=== PATIENT | male | born 1960 | race Caucasian/White ===

== ENCOUNTER 2017-02-24 23:54 | Emergency (ER) | payer MEDICAID ==
[~2017-02-24] VITALS: Ht 190.5 cm; Wt 114.0 kg
[~2017-02-24 23:54] MED LIST: GABA100C8 PO; HYDR12.58 PO; LISI30TA4 PO; LISINOPRIL PO; METF500T4 PO; NAPR500T3 PO; TAMS-11 PO; TERA1CAP3 PO
[2017-02-24 23:56] VITALS: BP 124/85
== END 2017-02-25 00:53 | disposition home or self-care (01) ==
LOC: ED 02-25 00:47
DX: L27.0 Generalized skin eruption due to drugs and medicaments taken internally (principal); T37.5X5A Adverse effect of antiviral drugs, initial encounter; I10 Essential (primary) hypertension; E11.9 Type 2 diabetes mellitus without complications; F17.210 Nicotine dependence, cigarettes, uncomplicated; Y92.89 Other specified places as the place of occurrence of the external cause
CPT/HCPCS: 99283; J7512

== ENCOUNTER 2017-05-14 01:17 | Emergency (ER) | payer MEDICAID ==
[~2017-05-14] VITALS: Ht 193 cm; Wt 116.8 kg
[~2017-05-14 01:17] MED LIST changes: +GABA-826 PO; -GABA100C8 PO
[2017-05-14 01:18] VITALS: BP 134/82
[2017-05-14] MEDS ORDERED: FLUORESCEIN OPHTHALMIC 1 MG STRIP ONE (01:30)
[2017-05-14] MEDS ORDERED: PROPARACAINE OPHTH 0.5%, 15ML ONE (01:30)
== END 2017-05-14 02:12 | disposition home or self-care (01) ==
LOC: ED 01:42
DX: H10.231 Serous conjunctivitis, except viral, right eye (principal); I10 Essential (primary) hypertension; E11.9 Type 2 diabetes mellitus without complications; N40.0 Benign prostatic hyperplasia without lower urinary tract symptoms; K75.9 Inflammatory liver disease, unspecified; F17.200 Nicotine dependence, unspecified, uncomplicated; Z88.1 Allergy status to other antibiotic agents
CPT/HCPCS: 99283

== ENCOUNTER 2017-09-21 15:48 | Inpatient (IN) | payer MEDICAID, OTHER ==
[~2017-09-21] VITALS: Ht 193 cm; Wt 128.2 kg
[~2017-09-21 15:48] MED LIST changes: -NAPR500T3 PO; +NAPR500T4 PO
[2017-09-21 16:48] LABS: HEMATOCRIT 48.3 % (39.2-51.8); HEMOGLOBIN 16.4 g/dL (13.7-18.0); WHITE BLOOD COUNT 12.4 x10^3/uL (3.4-10)
[2017-09-21] MEDS ORDERED: ALBUTEROL/IPRATROPIUM 2.5MG/0.5MG, 3 ML ONE (16:58)
[2017-09-21 16:59] LABS: BLOOD UREA NITROGEN 10 mg/dL (7-18)
[2017-09-21] MEDS ORDERED: SODIUM CHLORIDE FLUSH 10ML SYR IVF ONE (17:00)
[2017-09-21] MEDS ORDERED: ALBUTEROL/IPRATROPIUM 2.5MG/0.5MG, 3 ML NPPB ONE (17:00)
[2017-09-21] MEDS ORDERED: ALBU18HF INH (17:01)
[2017-09-21 17:05] LABS: ABG COLLECTION SITE LEFT BRACHIAL
[2017-09-21 17:19] LABS: RAPID INFLUENZA A Negative (Negative); RAPID INFLUENZA B Negative (Negative)
[2017-09-21] MEDS ORDERED: ALBUTEROL SULFATE 2.5 MG/3 ML ONE (17:22)
[2017-09-21] MEDS ORDERED: CEFTRIAXONE PMX 1GM/50ML 50 ML IVPB ONE (17:30)
[2017-09-21] MEDS ORDERED: ALBUTEROL 0.5%, 20ML NPPB SCH (17:30)
[2017-09-21] MEDS ORDERED: CEFTRIAXONE PMX 1GM/50ML 50 ML ONE (17:31)
[2017-09-21] MEDS ORDERED: AZITHROMYCIN 500 MG in SODIUM CHLORIDE 0.9% 250 ML IV ONE (18:00)
[2017-09-21] MEDS ORDERED: DOCUSATE 100 MG CAPSULE PO PRN (19:30)
[2017-09-21] MEDS ORDERED: ONDANSETRON 2MG/ML, 2ML IVPush PRN (19:30)
[2017-09-21] MEDS ORDERED: ONDANSETRON ODT 4 MG PO PRN (19:30)
[2017-09-21] MEDS ORDERED: BISACODYL 10 MG SUPP PR PRN (19:30)
[2017-09-21] MEDS ORDERED: FUROSEMIDE 40 MG/4 ML IV ONE (20:00)
[2017-09-21 20:15] VITALS: BP 137/83
[2017-09-21] MEDS: NICOTINE 14MG/24 HR PATCH.TD24 TD SCH (20:29)
[2017-09-21] MEDS: SODIUM CHLORIDE 0.9% 1,000 ML IV SCH (21:02)
[2017-09-21 22:16] VITALS: BP 137/83
[2017-09-21] MEDS: HEPARIN 5,000 UNITS/ML, 1ML SQ SCH (22:45)
[2017-09-21] MEDS ORDERED: LORazepam 2 MG/ML, 1ML IVPush PRN (23:00)
[2017-09-22 01:22] VITALS: BP 152/73
[2017-09-22] MEDS ORDERED: CEFTRIAXONE PMX 1GM/50ML 50 ML IV SCH (03:00)
[2017-09-22] MEDS ORDERED: AZITHROMYCIN 500 MG in SODIUM CHLORIDE 0.9% 250 ML IV SCH (03:00)
[2017-09-22] MEDS: SODIUM CHLORIDE 0.9% 1,000 ML IV SCH (03:19)
[2017-09-22] MEDS: ALBUTEROL/IPRATROPIUM 2.5MG/0.5MG, 3 ML NPPB SCH ×5 (03:50→19:40)
[2017-09-22] MEDS ORDERED: FUROSEMIDE 40 MG/4 ML IV ONE ×2 (04:30→09:30)
[2017-09-22] MEDS ORDERED: METOPROLOL TARTRATE 25 MG TABLET PO SCH (06:00)
[2017-09-22] MEDS: HEPARIN 5,000 UNITS/ML, 1ML SQ SCH ×3 (06:02→19:48)
[2017-09-22 06:16] LABS: BLOOD UREA NITROGEN 12 mg/dL (7-18)
[2017-09-22 06:17] LABS: ASPARTATE AMINO TRANSFERASE 17 U/L (15-37)
[2017-09-22 06:50] LABS: HEMATOCRIT 50.5 % (39.2-51.8); HEMOGLOBIN 16.7 g/dL (13.7-18.0); WHITE BLOOD COUNT 8.7 x10^3/uL (3.4-10)
[2017-09-22 08:00] VITALS: BP 94/58
[2017-09-22] MEDS ORDERED: LISINOPRIL 5 MG TABLET PO SCH (09:00)
[2017-09-22] MEDS ORDERED: CLOPIDOGREL 75 MG TABLET PO SCH (09:00)
[2017-09-22] MEDS ORDERED: HYDROCHLOROTHIAZIDE 12.5 MG CAPSULE PO SCH (09:00)
[2017-09-22] MEDS ORDERED: POTASSIUM CHLORIDE 20 MEQ TAB.ER.PRT PO ONE (09:30)
[2017-09-22] MEDS ORDERED: ALBUTEROL HFA 90 MCG/SPRAY INH PRN (09:30)
[2017-09-22 13:00] VITALS: BP 113/76
[2017-09-22 16:38] LABS: DAU SCREEN DISCLAIMER
[2017-09-22 18:39] VITALS: BP 123/75
[2017-09-22] MEDS: GABAPENTIN 100 MG CAPSULE PO SCH (19:48)
[2017-09-22] MEDS: metFORMIN 500 MG TABLET PO SCH (19:48)
[2017-09-22] MEDS: NICOTINE 14MG/24 HR PATCH.TD24 TD SCH (19:49)
[2017-09-22] MEDS: GUAIFENESIN ER 600 MG TABLET PO SCH (19:51)
[2017-09-23 00:43] VITALS: BP 142/89
[2017-09-23] MEDS: HEPARIN 5,000 UNITS/ML, 1ML SQ SCH ×2 (03:27→04:55)
[2017-09-23] MEDS ORDERED: ACETAMINOPHEN 325 MG TABLET PO PRN (03:30)
[2017-09-23 05:26] LABS: HEMATOCRIT 47.7 % (39.2-51.8); HEMOGLOBIN 16.2 g/dL (13.7-18.0); WHITE BLOOD COUNT 8.6 x10^3/uL (3.4-10)
[2017-09-23 05:37] LABS: BLOOD UREA NITROGEN 27 mg/dL (7-18)
[2017-09-23 06:32] VITALS: BP 108/74
[2017-09-23] MEDS: GUAIFENESIN ER 600 MG TABLET PO SCH (08:46)
[2017-09-23] MEDS: GABAPENTIN 100 MG CAPSULE PO SCH (08:46)
[2017-09-23] MEDS: metFORMIN 500 MG TABLET PO SCH (08:51)
[2017-09-23] MEDS ORDERED: HYDROCHLOROTHIAZIDE 12.5 MG CAPSULE PO SCH (09:00)
[2017-09-23] MEDS ORDERED: LISINOPRIL 10 MG TABLET PO SCH (09:00)
== END 2017-09-23 10:00 | disposition left against medical advice (07) | DRG 871 ==
LOC: ED 19:13 → EDIP 20:02 → 3NE 20:03
PROVIDERS: ADMIT Surgery; ATTEND Surgery
DX: A41.9 Sepsis, unspecified organism (principal); J15.9 Unspecified bacterial pneumonia; J96.21 Acute and chronic respiratory failure with hypoxia; E87.1 Hypo-osmolality and hyponatremia; J44.0 Chronic obstructive pulmonary disease with (acute) lower respiratory infection; J44.1 Chronic obstructive pulmonary disease with (acute) exacerbation; I11.9 Hypertensive heart disease without heart failure; J20.9 Acute bronchitis, unspecified; M06.9 Rheumatoid arthritis, unspecified; N40.0 Benign prostatic hyperplasia without lower urinary tract symptoms; E66.01 Morbid (severe) obesity due to excess calories; Z68.34 Body mass index [BMI] 34.0-34.9, adult; I73.9 Peripheral vascular disease, unspecified; R73.9 Hyperglycemia, unspecified; Z53.21 Procedure and treatment not carried out due to patient leaving prior to being seen by health care provider
CPT/HCPCS: 36415; 36600; 71010; 80048; 80053; 80061; 80307; 81003; 82040; 82803; 83036; 83605; 83735; 83880; 84100; 84443; 85025; 87040; 87400; 93005; 93306; 94640; 96365; J0456; J0696; J1644; J1940; J7620; G0479; J7030; J7050; J7512

== ENCOUNTER 2018-07-27 10:59 | Inpatient (IN) | payer MEDICAID ==
[~2018-07-27] VITALS: Ht 193 cm; Wt 120.3 kg
[~2018-07-27 10:59] MED LIST changes: +ALBU18HF INH; +DOXY100T PO; +METF500T17 PO; -METF500T4 PO; +NAPR-685 PO; -NAPR500T4 PO; +NICO-486 TD; +PRED10TA PO
[2018-07-27] MEDS ORDERED: SODIUM CHLORIDE FLUSH 10ML SYR IVF ONE (11:30)
[2018-07-27 11:56] LABS: BASOPHILS # (AUTO) 0.06 x10^3/uL (0-0.1); BASOPHILS % (AUTO) 0 % (0-1); EOSINOPHILS # (AUTO) 0.12 x10^3/uL (0-0.4); EOSINOPHILS % (AUTO) 1 % (1-7); LYMPHOCYTES # (AUTO) 0.97 x10^3/uL (1-3.4); LYMPHOCYTES % (AUTO) 7 % (22-44); MD NO; MEAN CORPUSCULAR HEMOGLOBIN 34.1 pg (27.5-34.5); MEAN CORPUSCULAR HGB CONC 34.2 g/dL (33.2-36.2); MEAN CORPUSCULAR VOLUME 99.5 fL (81-97); MEAN PLATELET VOLUME 8.4 fL (7.4-10.4); MONOCYTES # (AUTO) 0.55 x10^3/uL (0.2-0.8); MONOCYTES % (AUTO) 4 % (2-9); NEUTROPHILS # (AUTO) 12.37 x10^3/uL (1.8-6.8); NEUTROPHILS % (AUTO) 88 % (42-75); PLATELET COUNT 243 x10^3/uL (130-400); RED BLOOD COUNT 4.69 x10^6/uL (4.38-5.82); RED CELL DISTRIBUTION WIDTH 13.8 % (9.4-14.8)
[2018-07-27 12:10] LABS: ALANINE AMINOTRANSFERASE 30 U/L (12-78); ALBUMIN 3.5 g/dL (3.4-5.0); ANION GAP 9 mmol/L (5-15); CALCIUM 8.4 mg/dL (8.5-10.1); CHLORIDE 97 mmol/L (98-107); CREATININE 0.96 mg/dL (0.7-1.3)
[2018-07-27 12:14] LABS: ALKALINE PHOSPHATASE 102 U/L (45-117); BILIRUBIN,TOTAL 1.4 mg/dL (0.2-1.0)
[2018-07-27 12:26] LABS: RAPID INFLUENZA A Negative (Negative); RAPID INFLUENZA B Negative (Negative)
[2018-07-27] MEDS ORDERED: AZITHROMYCIN 500 MG in SODIUM CHLORIDE 0.9% 250 ML IVPB ONE (12:30)
[2018-07-27] MEDS ORDERED: CEFTRIAXONE 1,000 MG in SODIUM CHLORIDE 0.9% 50 ML IVPB ONE (12:30)
[2018-07-27] MEDS ORDERED: CEFTRIAXONE PMX 1GM/50ML 50 ML ONE (12:31)
[2018-07-27] MEDS ORDERED: SODIUM CHLORIDE FLUSH 10ML SYR IVF PRN (13:00)
[2018-07-27] MEDS ORDERED: NS + 20MEQ KCL 1,000 ML IV SCH (13:08)
[2018-07-27] MEDS ORDERED: GLUCAGON 1 MG IM PRN (13:30)
[2018-07-27] MEDS ORDERED: DEXTROSE 50%, 50ML SYRINGE IVPush PRN (13:30)
[2018-07-27] MEDS ORDERED: GUAIFENESIN/DM 200-20MG, 10ML UDC PO PRN (13:30)
[2018-07-27] MEDS ORDERED: ONDANSETRON 2MG/ML, 2ML IVPush PRN (13:30)
[2018-07-27] MEDS ORDERED: DEXTROSE 4 GM TAB.CHEW PO PRN (13:30)
[2018-07-27] MEDS ORDERED: POLYETHYLENE GLYCOL 17 GM PACKET PO PRN (13:30)
[2018-07-27] MEDS ORDERED: ACETAMINOPHEN 325 MG TABLET PO PRN (13:30)
[2018-07-27] MEDS ORDERED: ALBUTEROL/IPRATROPIUM 2.5MG/0.5MG, 3 ML ONE (14:02)
[2018-07-27] MEDS ORDERED: AMLO5TAB7 PO (14:03)
[2018-07-27] MEDS: ALBUTEROL/IPRATROPIUM 2.5MG/0.5MG, 3 ML NPPB SCH ×2 (14:17→19:59)
[2018-07-27 14:28] VITALS: BP 112/71
[2018-07-27] MEDS: AZITHROMYCIN 500 MG in SODIUM CHLORIDE 0.9% 250 ML IV SCH (14:56)
[2018-07-27] MEDS: INSULIN LISPRO 100 UNITS/ML, PEN SQ-INSULIN SCH ×2 (16:00→21:00)
[2018-07-27 19:14] VITALS: BP 107/71
[2018-07-27] MEDS: SODIUM CHLORIDE FLUSH 10ML SYR IVF SCH (21:00)
[2018-07-27] MEDS: ENOXAPARIN 40 MG/0.4 ML SQ SCH (21:07)
[2018-07-27] MEDS: metFORMIN 500 MG TABLET PO SCH (21:07)
[2018-07-27] MEDS: GABAPENTIN 300 MG CAPSULE PO SCH (21:07)
[2018-07-27] MEDS: HYDROcodone/APAP 5/325 TABLET PO PRN (21:58)
[2018-07-28 00:51] VITALS: BP 98/64
[2018-07-28] MEDS: TAMSULOSIN 0.4 MG CAP.ER.24H PO SCH ×2 (01:00→21:00)
[2018-07-28 01:29] LABS: MICROSCOPIC NOT IND
[2018-07-28 01:30] LABS: CULTURE INDICATED? NO
[2018-07-28] MEDS: HYDROcodone/APAP 5/325 TABLET PO PRN ×3 (05:25→18:13)
[2018-07-28 06:04] LABS: ANION GAP 7 mmol/L (5-15); CALCIUM 8.7 mg/dL (8.5-10.1); CHLORIDE 97 mmol/L (98-107); CREATININE 0.64 mg/dL (0.7-1.3)
[2018-07-28] MEDS: ALBUTEROL/IPRATROPIUM 2.5MG/0.5MG, 3 ML NPPB SCH ×4 (07:00→20:04)
[2018-07-28] MEDS: INSULIN LISPRO 100 UNITS/ML, PEN SQ-INSULIN SCH ×4 (07:00→21:00)
[2018-07-28 07:18] VITALS: BP 109/61
[2018-07-28] MEDS ORDERED: TAMSULOSIN 0.4 MG CAP.ER.24H PO SCH ×2 (09:00)
[2018-07-28] MEDS: SODIUM CHLORIDE FLUSH 10ML SYR IVF SCH ×2 (09:00→21:11)
[2018-07-28] MEDS: LISINOPRIL 10 MG TABLET PO SCH (09:00)
[2018-07-28] MEDS: HYDROCHLOROTHIAZIDE 12.5 MG CAPSULE PO SCH (09:00)
[2018-07-28] MEDS: GABAPENTIN 300 MG CAPSULE PO SCH ×2 (09:29→21:09)
[2018-07-28] MEDS: metFORMIN 500 MG TABLET PO SCH ×2 (09:30→21:00)
[2018-07-28] MEDS: SENNA/DOCUSATE TABLET PO SCH (09:30)
[2018-07-28] MEDS: NS + 20MEQ KCL 1,000 ML IV SCH (13:08)
[2018-07-28 13:09] VITALS: BP 115/72
[2018-07-28] MEDS: CEFTRIAXONE PMX 1GM/50ML 50 ML IV SCH (13:11)
[2018-07-28] MEDS: AZITHROMYCIN 500 MG in SODIUM CHLORIDE 0.9% 250 ML IV SCH (15:53)
[2018-07-28] MEDS ORDERED: OMNIPAQUE 350 MG/ML, 100ML BOTTLE ONE (17:09)
[2018-07-28 20:00] VITALS: BP 115/70
[2018-07-28] MEDS: ENOXAPARIN 40 MG/0.4 ML SQ SCH (21:09)
[2018-07-28 23:09] VITALS: BP 137/80
[2018-07-29 00:21] VITALS: BP 138/80
[2018-07-29] MEDS: NS + 20MEQ KCL 1,000 ML IV SCH (02:00)
[2018-07-29] MEDS: HYDROcodone/APAP 5/325 TABLET PO PRN ×3 (02:35→20:31)
[2018-07-29] MEDS: DOCUSATE 100 MG CAPSULE PO PRN ×2 (02:38→20:31)
[2018-07-29 05:07] LABS: BASOPHILS # (AUTO) 0.05 x10^3/uL (0-0.1); BASOPHILS % (AUTO) 0 % (0-1); EOSINOPHILS # (AUTO) 0.18 x10^3/uL (0-0.4); EOSINOPHILS % (AUTO) 1 % (1-7); LYMPHOCYTES # (AUTO) 1.46 x10^3/uL (1-3.4); LYMPHOCYTES % (AUTO) 11 % (22-44); MD NO; MEAN CORPUSCULAR HEMOGLOBIN 33.5 pg (27.5-34.5); MEAN CORPUSCULAR HGB CONC 33.4 g/dL (33.2-36.2); MEAN CORPUSCULAR VOLUME 100.2 fL (81-97); MEAN PLATELET VOLUME 7.7 fL (7.4-10.4); MONOCYTES # (AUTO) 0.83 x10^3/uL (0.2-0.8); MONOCYTES % (AUTO) 6 % (2-9); NEUTROPHILS # (AUTO) 10.79 x10^3/uL (1.8-6.8); NEUTROPHILS % (AUTO) 81 % (42-75); PLATELET COUNT 245 x10^3/uL (130-400); RED BLOOD COUNT 4.56 x10^6/uL (4.38-5.82); RED CELL DISTRIBUTION WIDTH 13.7 % (9.4-14.8)
[2018-07-29 05:16] LABS: ANION GAP 6 mmol/L (5-15); CALCIUM 8.4 mg/dL (8.5-10.1); CHLORIDE 99 mmol/L (98-107); CREATININE 0.57 mg/dL (0.7-1.3)
[2018-07-29] MEDS ORDERED: MAGNESIUM SULFATE PMX 2GM/50ML 50 ML IV ONE (05:30)
[2018-07-29] MEDS: INSULIN LISPRO 100 UNITS/ML, PEN SQ-INSULIN SCH ×4 (07:00→20:30)
[2018-07-29] MEDS: ALBUTEROL/IPRATROPIUM 2.5MG/0.5MG, 3 ML NPPB SCH ×4 (07:00→20:00)
[2018-07-29] MEDS: TAMSULOSIN 0.4 MG CAP.ER.24H PO SCH ×2 (09:00→09:33)
[2018-07-29] MEDS: metFORMIN 500 MG TABLET PO SCH ×2 (09:00→20:31)
[2018-07-29 09:32] VITALS: BP 131/75
[2018-07-29] MEDS: HYDROCHLOROTHIAZIDE 12.5 MG CAPSULE PO SCH (09:33)
[2018-07-29] MEDS: SENNA/DOCUSATE TABLET PO SCH (09:33)
[2018-07-29] MEDS: LISINOPRIL 10 MG TABLET PO SCH (09:33)
[2018-07-29] MEDS: GABAPENTIN 300 MG CAPSULE PO SCH ×2 (09:33→20:31)
[2018-07-29] MEDS: SODIUM CHLORIDE FLUSH 10ML SYR IVF SCH ×2 (09:34→20:24)
[2018-07-29] MEDS: CEFTRIAXONE PMX 1GM/50ML 50 ML IV SCH (11:51)
[2018-07-29 14:00] VITALS: BP 128/75
[2018-07-29] MEDS: AZITHROMYCIN 500 MG in SODIUM CHLORIDE 0.9% 250 ML IV SCH (15:41)
[2018-07-29 19:44] VITALS: BP 139/80
[2018-07-29] MEDS: ENOXAPARIN 40 MG/0.4 ML SQ SCH (20:34)
[2018-07-30 01:58] VITALS: BP 154/80
[2018-07-30 06:36] VITALS: BP 137/78
[2018-07-30] MEDS: INSULIN LISPRO 100 UNITS/ML, PEN SQ-INSULIN SCH ×4 (07:00→21:21)
[2018-07-30] MEDS: ALBUTEROL/IPRATROPIUM 2.5MG/0.5MG, 3 ML NPPB SCH ×4 (07:41→19:30)
[2018-07-30] MEDS: metFORMIN 500 MG TABLET PO SCH ×2 (07:52→21:18)
[2018-07-30] MEDS: TAMSULOSIN 0.4 MG CAP.ER.24H PO SCH (08:18)
[2018-07-30] MEDS: SODIUM CHLORIDE FLUSH 10ML SYR IVF SCH ×2 (08:18→21:20)
[2018-07-30] MEDS: GABAPENTIN 300 MG CAPSULE PO SCH ×2 (08:18→21:18)
[2018-07-30] MEDS: LISINOPRIL 10 MG TABLET PO SCH (08:18)
[2018-07-30] MEDS: HYDROCHLOROTHIAZIDE 12.5 MG CAPSULE PO SCH (08:18)
[2018-07-30] MEDS: SENNA/DOCUSATE TABLET PO SCH (08:19)
[2018-07-30] MEDS: CEFTRIAXONE PMX 1GM/50ML 50 ML IV SCH (11:42)
[2018-07-30 12:56] LABS: ALANINE AMINOTRANSFERASE 22 U/L (12-78); ALBUMIN 3.3 g/dL (3.4-5.0); ANION GAP 6 mmol/L (5-15); CALCIUM 9.2 mg/dL (8.5-10.1); CHLORIDE 97 mmol/L (98-107); CREATININE 0.58 mg/dL (0.7-1.3)
[2018-07-30 12:58] LABS: ALKALINE PHOSPHATASE 101 U/L (45-117); BILIRUBIN,TOTAL 0.4 mg/dL (0.2-1.0); TOTAL PROTEIN 8.4 g/dL (6.4-8.2)
[2018-07-30 13:37] LABS: BASOPHILS # (AUTO) 0.03 x10^3/uL (0-0.1); BASOPHILS % (AUTO) 0 % (0-1); EOSINOPHILS # (AUTO) 0.24 x10^3/uL (0-0.4); EOSINOPHILS % (AUTO) 2 % (1-7); LYMPHOCYTES # (AUTO) 1.34 x10^3/uL (1-3.4); LYMPHOCYTES % (AUTO) 12 % (22-44); MD NO; MEAN CORPUSCULAR HEMOGLOBIN 33.8 pg (27.5-34.5); MEAN CORPUSCULAR HGB CONC 33.5 g/dL (33.2-36.2); MEAN CORPUSCULAR VOLUME 100.8 fL (81-97); MEAN PLATELET VOLUME 7.9 fL (7.4-10.4); MONOCYTES # (AUTO) 0.81 x10^3/uL (0.2-0.8); MONOCYTES % (AUTO) 7 % (2-9); NEUTROPHILS # (AUTO) 8.57 x10^3/uL (1.8-6.8); NEUTROPHILS % (AUTO) 78 % (42-75); PLATELET COUNT 286 x10^3/uL (130-400); RED BLOOD COUNT 4.81 x10^6/uL (4.38-5.82); RED CELL DISTRIBUTION WIDTH 13.7 % (9.4-14.8)
[2018-07-30] MEDS: AZITHROMYCIN 500 MG in SODIUM CHLORIDE 0.9% 250 ML IV SCH (15:56)
[2018-07-30 17:02] VITALS: BP 139/87
[2018-07-30 19:55] VITALS: BP 148/90
[2018-07-30] MEDS: HYDROcodone/APAP 5/325 TABLET PO PRN (21:19)
[2018-07-30] MEDS: ENOXAPARIN 40 MG/0.4 ML SQ SCH (21:20)
[2018-07-31 01:54] VITALS: BP 148/96
[2018-07-31 05:03] LABS: BASOPHILS # (AUTO) 0.06 x10^3/uL (0-0.1); BASOPHILS % (AUTO) 1 % (0-1); EOSINOPHILS # (AUTO) 0.36 x10^3/uL (0-0.4); EOSINOPHILS % (AUTO) 4 % (1-7); LYMPHOCYTES # (AUTO) 1.76 x10^3/uL (1-3.4); LYMPHOCYTES % (AUTO) 18 % (22-44); MD NO; MEAN CORPUSCULAR HEMOGLOBIN 33.4 pg (27.5-34.5); MEAN CORPUSCULAR HGB CONC 33.2 g/dL (33.2-36.2); MEAN CORPUSCULAR VOLUME 100.5 fL (81-97); MEAN PLATELET VOLUME 7.7 fL (7.4-10.4); MONOCYTES # (AUTO) 0.81 x10^3/uL (0.2-0.8); MONOCYTES % (AUTO) 8 % (2-9); NEUTROPHILS # (AUTO) 6.97 x10^3/uL (1.8-6.8); NEUTROPHILS % (AUTO) 70 % (42-75); PLATELET COUNT 278 x10^3/uL (130-400); RED CELL DISTRIBUTION WIDTH 13.8 % (9.4-14.8)
[2018-07-31 05:15] LABS: ALBUMIN 3.1 g/dL (3.4-5.0); ANION GAP 8 mmol/L (5-15); CHLORIDE 100 mmol/L (98-107)
[2018-07-31] MEDS: ALBUTEROL/IPRATROPIUM 2.5MG/0.5MG, 3 ML NPPB SCH (07:00)
[2018-07-31] MEDS: SODIUM CHLORIDE FLUSH 10ML SYR IVF SCH (09:00)
[2018-07-31] MEDS: TAMSULOSIN 0.4 MG CAP.ER.24H PO SCH (09:00)
[2018-07-31] MEDS: SENNA/DOCUSATE TABLET PO SCH (09:13)
[2018-07-31] MEDS: LISINOPRIL 10 MG TABLET PO SCH (09:13)
[2018-07-31] MEDS: metFORMIN 500 MG TABLET PO SCH (09:13)
[2018-07-31] MEDS: GABAPENTIN 300 MG CAPSULE PO SCH (09:13)
[2018-07-31] MEDS: HYDROCHLOROTHIAZIDE 12.5 MG CAPSULE PO SCH (09:13)
[2018-07-31] MEDS: INSULIN LISPRO 100 UNITS/ML, PEN SQ-INSULIN SCH ×3 (09:14→16:00)
[2018-07-31] MEDS ORDERED: CEFDINIR 300 MG CAPSULE PO SCH (10:00)
[2018-07-31] MEDS ORDERED: DOXYCYCLINE 100MG TABLET PO SCH (10:00)
[2018-07-31] MEDS ORDERED: ALBUTEROL/IPRATROPIUM 2.5MG/0.5MG, 3 ML NPPB PRN (11:00)
[2018-07-31 12:52] VITALS: BP 135/87
[2018-07-31] MEDS ORDERED: CEFD300C37 PO (14:34)
[2018-07-31] MEDS ORDERED: TAMS-11 PO (14:34)
[2018-07-31] MEDS ORDERED: DOXY100T PO (14:34)
== END 2018-07-31 18:37 | disposition home or self-care (01) | DRG 193 ==
LOC: ED 12:33 → EDIP 12:34 → SUATTDRO 12:45 → ED 12:46 → UNDOADMIN 13:08 → EDIP 13:08 → 4NOR 13:39 → CCU 07-28 17:46 → 5SO 07-28 22:51
PROVIDERS: ADMIT Family Medicine; ATTEND Family Medicine
PROC: 5A09457 Assistance with Respiratory Ventilation, 24-96 Consecutive Hours, Continuous Positive Airway Pressure (ICD-10-PCS; principal; 2018-07-29)
DX: J15.9 Unspecified bacterial pneumonia (principal); J96.21 Acute and chronic respiratory failure with hypoxia; E87.1 Hypo-osmolality and hyponatremia; J44.0 Chronic obstructive pulmonary disease with (acute) lower respiratory infection; E11.9 Type 2 diabetes mellitus without complications; E66.01 Morbid (severe) obesity due to excess calories; Z68.32 Body mass index [BMI] 32.0-32.9, adult; Z88.6 Allergy status to analgesic agent; Z88.8 Allergy status to other drugs, medicaments and biological substances; E87.6 Hypokalemia; I10 Essential (primary) hypertension; N40.0 Benign prostatic hyperplasia without lower urinary tract symptoms; Z87.891 Personal history of nicotine dependence; Z91.19 Patient's noncompliance with other medical treatment and regimen; Z99.81 Dependence on supplemental oxygen
CPT/HCPCS: 36415; 36600; 87400; 99285; J7620; 71046; 71260; 80048; 80053; 81003; 82040; 82803; 82962; 83605; 83735; 83880; 84100; 85025; 85730; 87040; 87081; 93005; 93306; 94640; 94660; G0378; J0456; J0696; J1650; J3480; Q9967; J1815; J3475; J7050

== ENCOUNTER 2019-03-01 22:11 | Inpatient (IN) | payer MEDICAID ==
[~2019-03-01] VITALS: Ht 188 cm; Wt 116.0 kg
[~2019-03-01 22:11] MED LIST changes: +AMLO-150 PO; +CEFD300C37 PO; -HYDR12.58 PO; +HYDROCHLOROTH12.5 MG PO
[2019-03-01] MEDS ORDERED: SODIUM CHLORIDE 0.9% 1,000ML IVBOLUS ONE ×2 (23:00)
[2019-03-01] MEDS ORDERED: SODIUM CHLORIDE FLUSH 10ML SYR IVF ONE (23:00)
--- NOTE | 2019-03-01 23:00 | NUR ---
SECOND LITER STARTED, PT TO CT. BILATERAL MANUAL BP READ HOTN AT THIS TIME.
[2019-03-01 23:01] LABS: MEAN CORPUSCULAR HEMOGLOBIN 32.8 pg (27.5-34.5); MEAN CORPUSCULAR HGB CONC 32.9 g/dL (33.2-36.2); MEAN CORPUSCULAR VOLUME 99.6 fL (81-97); PLATELET COUNT 260 x10^3/uL (130-400); RED BLOOD COUNT 4.17 x10^6/uL (4.38-5.82); RED CELL DISTRIBUTION WIDTH 13.6 % (9.4-14.8)
--- NOTE | 2019-03-01 23:02 | NUR ---
LATE ENTRY: PT ARRIVES TO ED FROM HOME FOR FEELING LIKE HE WAS GOIGN TO FAINT AND BLACK TARRY STOOLS. PT REPORTS HE DOES NOT FEEL WELL AND HIS ABD IS DISTENDED. PT REPORTS NOT TRAUMA. PT ON ARRIVAL IS HOTN AND NEEDING HELPE DO THINGS. PT IS SIGNIFICANTLY WEAK AT THIS TIME. PT CONNECTED TO ALL MONITORS AND EKG COMPLETED. TWO LARGE BORE PIV PLACED AND LABS COLLECTED WITH TYPE AND SCREEN. PT CONNECTED TO ALL MONITORS AND FAST EXAM COMPELTED AT BEDSIDE. PT TO CT FOR ABD CT. AWAITITNG FURTHER ORDERS.
[2019-03-01 23:06] LABS: ALANINE AMINOTRANSFERASE 32 U/L (12-78); ANION GAP 10 mmol/L (5-15); CALCIUM 8.6 mg/dL (8.5-10.1); CHLORIDE 91 mmol/L (98-107); CREATININE 2.71 mg/dL (0.7-1.3)
[2019-03-01 23:09] LABS: ALKALINE PHOSPHATASE 105 U/L (45-117); BILIRUBIN,TOTAL 1.3 mg/dL (0.2-1.0); TOTAL PROTEIN 8.1 g/dL (6.4-8.2)
[2019-03-01 23:12] LABS: INTERNATIONAL NORMALIZED RATIO 0.96 (0.93-1.1); PROTHROMBIN TIME 10.1 Seconds (9.6-11.5)
[2019-03-01] MEDS ORDERED: OMNIPAQUE 350 MG/ML, 100ML BOTTLE ONE (23:13)
[2019-03-01 23:31] LABS: BASOPHILS # (AUTO) 0.04 x10^3/uL (0-0.1); BASOPHILS % (AUTO) 0 % (0-1); EOSINOPHILS # (AUTO) 0.01 x10^3/uL (0-0.4); EOSINOPHILS % (AUTO) 0 % (1-7); LYMPHOCYTES # (AUTO) 1.31 x10^3/uL (1-3.4); LYMPHOCYTES % (AUTO) 10 % (22-44); MD SCAN; MONOCYTES # (AUTO) 1.57 x10^3/uL (0.2-0.8); MONOCYTES % (AUTO) 12 % (2-9); NEUTROPHILS # (AUTO) 9.79 x10^3/uL (1.8-6.8); NEUTROPHILS % (AUTO) 77 % (42-75)
--- NOTE | 2019-03-01 23:41 | NUR ---
PT BACK FROM CT, RESTING. BP IMPROVING. PT RPEORTS BEING VERY COLD. BEAR PAW APPLIED.
--- NOTE | 2019-03-01 23:50 | NUR ---
MD INFORMED CTA RESULTS BACK AND TO PLEASE REVIEW. PT STABLE AT THIS TIME. MD AWAITING REST OF IMAGING.
--- NOTE | 2019-03-02 00:02 | NUR ---
BEDSIDE REPORT TO NANCY YO
--- NOTE | 2019-03-02 00:40 | NUR ---
PT STRAIGHT CATHED FOR URINE PER ERP OKAY, URINE WALKED TO LAB. PT BP LOW, ERP AWARE, ORDERS PLACED FOR FLUIDS. FLUIDS INFUSING AT THIS TIME. PT IN TRENDELENBERG POSITION. PT ON O2 N/C AT 4.5L. BILAT BEDRAILS UP, CALL LIGHT WITHIN REACH.
[2019-03-02 00:48] LABS: MICROSCOPIC AUTO
[2019-03-02] MEDS ORDERED: NOREPINEPHRINE 4 MG in SODIUM CHLORIDE 0.9% 246 ML IV PRN (00:53)
[2019-03-02 00:54] LABS: CULTURE INDICATED? YES
[2019-03-02 00:58] LABS: AMPHETAMINE SCREEN, URINE Positive (Negative); BARBITURATE SCREEN, URINE Negative (Negative); BENZODIAZEPINE SCREEN, URINE Negative (Negative); CANNABINOID SCREEN, URINE Positive (Negative); COCAINE SCREEN, URINE Negative (Negative); METHADONE SCREEN, URINE Negative (Negative); OPIATE SCREEN, URINE Negative (Negative)
[2019-03-02] MEDS ORDERED: CEFTRIAXONE PMX 1GM/50ML 50 ML IV ONE (01:00)
[2019-03-02] MEDS ORDERED: SODIUM CHLORIDE 0.9%, 500ML IVBOLUS ONE (01:00)
--- NOTE | 2019-03-02 01:25 | NUR ---
PT PRESSURE CONTINUING TO DROP. PT REPOSITIONED IN BED. ORDERED LEVO DRIP STARTED. IR HERE TO GET REPORT ON PT. WILL CONTINUE TO MONITOR.
[2019-03-02] MEDS ORDERED: LIDOCAINE-MPF 1%, 5ML ONE (01:40)
[2019-03-02] MEDS ORDERED: FENTANYL PF 100 MCG/2ML ONE ×2 (01:58→03:27)
[2019-03-02] MEDS ORDERED: VISIPAQUE 320 MG/ML, 150ML BOTTLE ONE (02:00)
--- NOTE | 2019-03-02 03:26 | NUR ---
PT REMAINS IN IR. BLOOD CULTS HAVE BEEN DRAWN.
[2019-03-02] MEDS ORDERED: DIPHENHYDRAMINE 50 MG/ML, 1ML ONE (03:35)
--- NOTE | 2019-03-02 04:15 | NUR ---
ASSUMED CARE FOR THIS PT. PT MOVED TO TRAUMA 3 AND HAS RETURNED FROM IR PROCEDURE AND LEVO DRIP WAS TURNED OFF DURING PROCEDURE. BP NOW 123/76 HR AT 83 AND RESP AT 18.
[2019-03-02] MEDS: SODIUM CHLORIDE 0.9% 1,000 ML IV SCH ×2 (04:20→16:48)
[2019-03-02] MEDS ORDERED: MORPHINE SULFATE 4 MG/ML, 1ML ONE ×2 (04:23→05:34)
[2019-03-02] MEDS: morphine SULFATE 10 MG/ML, 1ML IVPush PRN ×2 (04:26→05:38)
[2019-03-02] MEDS ORDERED: CEFTRIAXONE PMX 1GM/50ML 50 ML ONE (04:29)
[2019-03-02] MEDS ORDERED: ONDANSETRON 2MG/ML, 2ML IVPush PRN (04:30)
[2019-03-02] MEDS ORDERED: HYDROmorphone 1 MG/ML, 1ML VIAL ONE (05:00)
[2019-03-02] MEDS: HYDROmorphone 2 MG/ML, 1ML IVPush PRN ×4 (05:02→22:10)
[2019-03-02 05:04] LABS: MEAN CORPUSCULAR HEMOGLOBIN 32.3 pg (27.5-34.5); MEAN CORPUSCULAR HGB CONC 32.8 g/dL (33.2-36.2); MEAN CORPUSCULAR VOLUME 98.4 fL (81-97); MEAN PLATELET VOLUME 8.4 fL (7.4-10.4); PLATELET COUNT 209 x10^3/uL (130-400); RED BLOOD COUNT 3.81 x10^6/uL (4.38-5.82); RED CELL DISTRIBUTION WIDTH 13.3 % (9.4-14.8)
--- NOTE | 2019-03-02 05:09 | NUR ---
rafal rn: pt medicated per nov. pt c/o severe pain and moaning constantly. pt cussed at this rn but then stated he would take the pain meds. pt vs stable. see charting. bed locked in low position.
--- NOTE | 2019-03-02 05:28 | NUR ---
PT CONTINUES TO HAVE PAIN AND VS REMAIN STABLE.
--- NOTE | 2019-03-02 05:39 | NUR ---
PT MEDICATED FOR PAIN WITH ANOTHER 4 MG OF MORPHINE.
[2019-03-02 05:49] LABS: MD YES
[2019-03-02 05:52] LABS: BAND#(MANUAL) 0.57 x10^3/uL; BANDS%(MANUAL) 5 % (0-7); BASOS#(MANUAL) 0.11 x10^3/uL (0-0.1); BASOS% (MANUAL) 1 % (0-1); LYMPH#(MANUAL) 1.24 x10^3/uL (1-3.4); LYMPHS% (MANUAL) 11 % (22-44); MONOS#(MANUAL) 1.24 x10^3/uL (0.3-2.7); MONOS% (MANUAL) 11 % (2-9); SEG#(MANUAL) 8.14 x10^3/uL (1.8-6.8); SEGS% (MANUAL) 72 % (42-75)
[2019-03-02 05:53] LABS: <PLATELET ESTIMATE> ADEQUATE; <PLT MORPHOLOGY> NORMAL PLT MORPH; <RBC MORPHOLOGY> NORMAL
--- NOTE | 2019-03-02 06:06 | NUR ---
PT STILL IN 8/10 PAIN AGGITATED AND DEMANDING. PT WITH 800 PLUS URINE AFTER CATH WAS PLACED. NO MORE PAIN MEDS AVAILIABLE FOR 2 HOURS.
--- NOTE | 2019-03-02 06:12 | NUR ---
PT MOVED TO ED #14 AND REPORT GIVEN.
--- NOTE | 2019-03-02 06:20 | NUR ---
RECEIVED REPORT FROM SHIRAZ Bunch RN. PT RESTING IN BED. PT STRONGLY REQUESTING WATER, PT AWARE HIS DIET IS NPO. EXPLAINED TO PT WHY HE CAN NOT HAVE WATER. PT OFFERED LEMON SWABS. WILL CONTINUE TO MONITOR.
--- NOTE | 2019-03-02 06:57 | NUR ---
report to Nette and Vianca Feliciano.
[2019-03-02] MEDS: INSULIN LISPRO 100 UNITS/ML, PEN SQ-INSULIN SCH ×4 (07:35→21:00)
--- NOTE | 2019-03-02 08:05 | NUR ---
REPORT GIVEN TO SRINATH NUNEZ ON [employer] TELE
[2019-03-02 08:37] VITALS: BP 115/77
[2019-03-02] MEDS: TAMSULOSIN 0.4 MG CAP.ER.24H PO SCH (09:00)
[2019-03-02 09:30] LABS: MEAN CORPUSCULAR HEMOGLOBIN 32.7 pg (27.5-34.5); MEAN CORPUSCULAR HGB CONC 33.1 g/dL (33.2-36.2); MEAN CORPUSCULAR VOLUME 98.5 fL (81-97); PLATELET COUNT 209 x10^3/uL (130-400); RED BLOOD COUNT 3.76 x10^6/uL (4.38-5.82); RED CELL DISTRIBUTION WIDTH 13.5 % (9.4-14.8)
[2019-03-02 09:53] LABS: MD YES
[2019-03-02 09:55] LABS: BAND#(MANUAL) 0.95 x10^3/uL; BANDS%(MANUAL) 7 % (0-7); EOS#(MANUAL) 0.14 x10^3/uL (0.0-0.4); EOS% (MANUAL) 1 % (1-7); LYMPH#(MANUAL) 0.41 x10^3/uL (1-3.4); LYMPHS% (MANUAL) 3 % (22-44); MONOS#(MANUAL) 1.63 x10^3/uL (0.3-2.7); MONOS% (MANUAL) 12 % (2-9); SEG#(MANUAL) 10.47 x10^3/uL (1.8-6.8); SEGS% (MANUAL) 77 % (42-75)
[2019-03-02 09:56] LABS: <PLATELET ESTIMATE> ADEQUATE; <PLT MORPHOLOGY> NORMAL PLT MORPH; <RBC MORPHOLOGY> NORMAL
[2019-03-02 13:40] LABS: MEAN CORPUSCULAR HEMOGLOBIN 32.7 pg (27.5-34.5); MEAN CORPUSCULAR HGB CONC 32.9 g/dL (33.2-36.2); MEAN CORPUSCULAR VOLUME 99.3 fL (81-97); MEAN PLATELET VOLUME 8.1 fL (7.4-10.4); PLATELET COUNT 203 x10^3/uL (130-400); RED BLOOD COUNT 3.89 x10^6/uL (4.38-5.82); RED CELL DISTRIBUTION WIDTH 13.8 % (9.4-14.8)
[2019-03-02 14:00] VITALS: BP 111/65
[2019-03-02 15:10] LABS: MD YES
[2019-03-02 15:12] LABS: BAND#(MANUAL) 2.43 x10^3/uL; BANDS%(MANUAL) 17 % (0-7); BASOS#(MANUAL) 0.14 x10^3/uL (0-0.1); BASOS% (MANUAL) 1 % (0-1); LYMPH#(MANUAL) 0.43 x10^3/uL (1-3.4); LYMPHS% (MANUAL) 3 % (22-44); MONOS#(MANUAL) 0.86 x10^3/uL (0.3-2.7); MONOS% (MANUAL) 6 % (2-9); SEG#(MANUAL) 10.44 x10^3/uL (1.8-6.8); SEGS% (MANUAL) 73 % (42-75)
[2019-03-02 15:14] LABS: <PLATELET ESTIMATE> ADEQUATE; <PLT MORPHOLOGY> NORMAL PLT MORPH; <RBC MORPHOLOGY> NORMAL
[2019-03-02 19:09] LABS: MEAN CORPUSCULAR HEMOGLOBIN 33.3 pg (27.5-34.5); MEAN CORPUSCULAR HGB CONC 32.9 g/dL (33.2-36.2); MEAN CORPUSCULAR VOLUME 101.2 fL (81-97); MEAN PLATELET VOLUME 7.8 fL (7.4-10.4); PLATELET COUNT 220 x10^3/uL (130-400); RED BLOOD COUNT 3.88 x10^6/uL (4.38-5.82); RED CELL DISTRIBUTION WIDTH 13.9 % (9.4-14.8)
[2019-03-02 19:21] VITALS: BP 129/82
[2019-03-02 19:38] LABS: MD YES
[2019-03-02 19:42] LABS: BAND#(MANUAL) 1.68 x10^3/uL; BANDS%(MANUAL) 11 % (0-7); LYMPH#(MANUAL) 1.07 x10^3/uL (1-3.4); LYMPHS% (MANUAL) 7 % (22-44); MONOS#(MANUAL) 1.53 x10^3/uL (0.3-2.7); MONOS% (MANUAL) 10 % (2-9); SEG#(MANUAL) 11.02 x10^3/uL (1.8-6.8); SEGS% (MANUAL) 72 % (42-75)
[2019-03-02 19:43] LABS: <PLATELET ESTIMATE> ADEQUATE; <PLT MORPHOLOGY> NORMAL PLT MORPH; <RBC MORPHOLOGY> NORMAL; PMNS WITH VACUOLES 1+
[2019-03-03] MEDS: SODIUM CHLORIDE 0.9% 1,000 ML IV SCH ×3 (00:16→12:36)
[2019-03-03 01:55] VITALS: BP 120/80
[2019-03-03] MEDS: HYDROmorphone 2 MG/ML, 1ML IVPush PRN ×3 (02:49→12:35)
[2019-03-03] MEDS: CEFTRIAXONE PMX 1GM/50ML 50 ML IV SCH (04:38)
[2019-03-03] MEDS: INSULIN LISPRO 100 UNITS/ML, PEN SQ-INSULIN SCH ×4 (07:00→20:36)
[2019-03-03] MEDS: TAMSULOSIN 0.4 MG CAP.ER.24H PO SCH (08:12)
[2019-03-03 08:24] VITALS: BP 129/78
[2019-03-03 08:48] LABS: MEAN CORPUSCULAR HEMOGLOBIN 32.6 pg (27.5-34.5); MEAN CORPUSCULAR HGB CONC 32.9 g/dL (33.2-36.2); MEAN CORPUSCULAR VOLUME 99.1 fL (81-97); MEAN PLATELET VOLUME 7.6 fL (7.4-10.4); PLATELET COUNT 219 x10^3/uL (130-400); RED BLOOD COUNT 3.87 x10^6/uL (4.38-5.82); RED CELL DISTRIBUTION WIDTH 13.8 % (9.4-14.8)
[2019-03-03 09:00] LABS: ALANINE AMINOTRANSFERASE 88 U/L (12-78); ALBUMIN 2.5 g/dL (3.4-5.0); ANION GAP 7 mmol/L (5-15); CALCIUM 8.5 mg/dL (8.5-10.1); CHLORIDE 95 mmol/L (98-107); CREATININE 0.99 mg/dL (0.7-1.3)
[2019-03-03 09:03] LABS: ALKALINE PHOSPHATASE 102 U/L (45-117); BILIRUBIN,TOTAL 1.2 mg/dL (0.2-1.0); TOTAL PROTEIN 7.4 g/dL (6.4-8.2)
[2019-03-03 09:05] LABS: MD YES
[2019-03-03 09:07] LABS: <PLATELET ESTIMATE> ADEQUATE; <PLT MORPHOLOGY> NORMAL PLT MORPH; <RBC MORPHOLOGY> NORMAL; BAND#(MANUAL) 0.16 x10^3/uL; BANDS%(MANUAL) 1 % (0-7); LYMPHS% (MANUAL) 5 % (22-44); MONOS#(MANUAL) 1.43 x10^3/uL (0.3-2.7); MONOS% (MANUAL) 9 % (2-9); SEG#(MANUAL) 13.52 x10^3/uL (1.8-6.8); SEGS% (MANUAL) 85 % (42-75); TOXIC GRAN 1+
[2019-03-03 12:43] VITALS: BP 124/75
[2019-03-03] MEDS ORDERED: LORazepam 2 MG/ML, 1ML IV PRN ×5 (16:00)
[2019-03-03] MEDS ORDERED: POTASSIUM CHLORIDE 20 MEQ, MAGNESIUM SULFATE 1 GM, FOLIC ACID 1 MG, THIAMINE 200 MG, MV... IV SCH (16:00)
[2019-03-03] MEDS ORDERED: LORazepam 0.5MG TABLET PO PRN (16:00)
[2019-03-03] MEDS ORDERED: LORazepam 1MG TABLET PO PRN ×4 (16:00)
[2019-03-03] MEDS ORDERED: POLYETHYLENE GLYCOL 17 GM PACKET PO PRN (17:00)
[2019-03-03] MEDS ORDERED: BISACODYL 10 MG SUPP PR PRN (17:00)
[2019-03-03] MEDS ORDERED: SENNA/DOCUSATE TABLET PO PRN (17:00)
[2019-03-03 17:12] LABS: MEAN CORPUSCULAR HEMOGLOBIN 32.6 pg (27.5-34.5); MEAN CORPUSCULAR HGB CONC 32.5 g/dL (33.2-36.2); MEAN CORPUSCULAR VOLUME 100.4 fL (81-97); PLATELET COUNT 230 x10^3/uL (130-400); RED BLOOD COUNT 4.28 x10^6/uL (4.38-5.82); RED CELL DISTRIBUTION WIDTH 13.7 % (9.4-14.8)
[2019-03-03 17:22] LABS: ALANINE AMINOTRANSFERASE 84 U/L (12-78); ALBUMIN 2.6 g/dL (3.4-5.0); ANION GAP 7 mmol/L (5-15); CALCIUM 8.7 mg/dL (8.5-10.1); CHLORIDE 95 mmol/L (98-107); CREATININE 1.03 mg/dL (0.7-1.3)
[2019-03-03 17:24] LABS: ALKALINE PHOSPHATASE 107 U/L (45-117); BILIRUBIN,TOTAL 1.1 mg/dL (0.2-1.0); TOTAL PROTEIN 7.6 g/dL (6.4-8.2)
[2019-03-03 17:34] LABS: BASOPHILS # (AUTO) 0.03 x10^3/uL (0-0.1); BASOPHILS % (AUTO) 0 % (0-1); EOSINOPHILS # (AUTO) 0.02 x10^3/uL (0-0.4); EOSINOPHILS % (AUTO) 0 % (1-7); LYMPHOCYTES % (AUTO) 3 % (22-44); MD SCAN; MONOCYTES # (AUTO) 1.29 x10^3/uL (0.2-0.8); MONOCYTES % (AUTO) 8 % (2-9); NEUTROPHILS % (AUTO) 88 % (42-75)
[2019-03-03 19:45] VITALS: BP 143/94
[2019-03-03 23:08] VITALS: BP 109/82
[2019-03-04 00:42] VITALS: BP 132/87
[2019-03-04] MEDS: HYDROmorphone 2 MG/ML, 1ML IVPush PRN (01:30)
[2019-03-04] MEDS ORDERED: SODIUM CHLORIDE 0.9% 1,000 ML IV SCH (04:20)
[2019-03-04] MEDS: CEFTRIAXONE PMX 1GM/50ML 50 ML IV SCH (04:38)
== END 2019-03-04 08:01 | disposition left against medical advice (07) | DRG 853 ==
LOC: ED 23:30 → EDIP 03-02 01:39 → 4WST 03-02 08:19 → 4EST 03-04 02:17
PROVIDERS: ADMIT Internal Medicine; ATTEND Internal Medicine
PROC: 04L93DZ Occlusion of Right Renal Artery with Intraluminal Device, Percutaneous Approach (ICD-10-PCS; principal; 2019-03-02)
PROC: B4161ZZ Fluoroscopy of Right Renal Artery using Low Osmolar Contrast (ICD-10-PCS; 2019-03-02)
DX: A41.9 Sepsis, unspecified organism (principal); R65.21 Severe sepsis with septic shock; N39.0 Urinary tract infection, site not specified; S37.011A Minor contusion of right kidney, initial encounter; S37.012A Minor contusion of left kidney, initial encounter; J44.1 Chronic obstructive pulmonary disease with (acute) exacerbation; B19.20 Unspecified viral hepatitis C without hepatic coma; D64.9 Anemia, unspecified; F10.10 Alcohol abuse, uncomplicated; F12.90 Cannabis use, unspecified, uncomplicated; F15.90 Other stimulant use, unspecified, uncomplicated; E11.9 Type 2 diabetes mellitus without complications; I10 Essential (primary) hypertension; N28.89 Other specified disorders of kidney and ureter; N40.0 Benign prostatic hyperplasia without lower urinary tract symptoms; Z96.643 Presence of artificial hip joint, bilateral; M19.90 Unspecified osteoarthritis, unspecified site; R31.9 Hematuria, unspecified; X58.XXXA Exposure to other specified factors, initial encounter; Y93.89 Activity, other specified; Z79.899 Other long term (current) drug therapy; Z87.891 Personal history of nicotine dependence; Y92.89 Other specified places as the place of occurrence of the external cause; Z53.21 Procedure and treatment not carried out due to patient leaving prior to being seen by health care provider
CPT/HCPCS: 36415; 36600; 84145; 96360; 96361; 99291; 99292; J7121; 37244; 71045; 71275; 74175; 80053; 80307; 81001; 82803; 82962; 83605; 83690; 83735; 84100; 85014; 85018; 85025; 85610; 85730; 86850; 86900; 86923; 87040; 87077; 87086; 87186; 93005; C1894; G0378; J0696; J1170; J2405; J3010; J3411; J3475; J3480; Q9967; C1751; C1760; C1769; J1815; J2060; J2270; J7030; J7040; J7050

== ENCOUNTER 2019-03-05 22:08 | Emergency (ER) | payer MEDICAID | END 2019-03-06 00:41 | disposition left against medical advice (07) | LOC: ED 03-06 00:33 | DX: Z53.21 Procedure and treatment not carried out due to patient leaving prior to being seen by health care provider (principal) ==

== ENCOUNTER 2020-10-08 11:57 | Inpatient (IN) | payer MEDICAID ==
[~2020-10-08] VITALS: Ht 182.9 cm; Wt 130.5 kg
[2020-10-08] MEDS ORDERED: ALBUTEROL/IPRATROPIUM 2.5MG/0.5MG, 3 ML ONE (12:20)
[2020-10-08 12:27] LABS: MEAN CORPUSCULAR HEMOGLOBIN 32.5 pg (27.5-34.5); MEAN CORPUSCULAR HGB CONC 34.1 g/dL (33.2-36.2); MEAN PLATELET VOLUME 8.9 fL (7.4-10.4); PLATELET COUNT 154 x10^3/uL (130-400); RED BLOOD COUNT 4.85 x10^6/uL (4.38-5.82); RED CELL DISTRIBUTION WIDTH 14.6 % (9.4-14.8)
[2020-10-08] MEDS ORDERED: SODIUM CHLORIDE FLUSH 10ML SYR IVF ONE (12:30)
[2020-10-08] MEDS ORDERED: ALBUTEROL/IPRATROPIUM 2.5MG/0.5MG, 3 ML NPPB ONE (12:30)
[2020-10-08] MEDS ORDERED: IBUPROFEN 200 MG TABLET PO ONE (12:30)
--- NOTE | 2020-10-08 12:30 | NUR ---
AT BEDSIDE FOR ASSESSMENT
[2020-10-08] MEDS ORDERED: IBUPROFEN 200 MG TABLET ONE (12:31)
[2020-10-08 12:32] LABS: ALANINE AMINOTRANSFERASE 41 U/L (12-78); ALBUMIN 3.1 g/dL (3.4-5.0); ANION GAP 5 mmol/L (5-15); CALCIUM 8.6 mg/dL (8.5-10.1); CHLORIDE 92 mmol/L (98-107); CREATININE 2.45 mg/dL (0.7-1.3)
[2020-10-08 12:36] LABS: ALKALINE PHOSPHATASE 78 U/L (45-117); BILIRUBIN,TOTAL 1.5 mg/dL (0.2-1.0)
--- NOTE | 2020-10-08 12:46 | NUR ---
BIB EMS FOR SOB X 3 DAYS. PER EMS PTS FRIENDS CALLED THEM THIS AM WHEN PT DID NOT SHOW UP FOR BREAKFAST. ON ARRIVAL TO PT FOUND DOWN IN BASEMENT WHERE HE STATES HE HAS BEEN FOR "A FEW DAYS". PT AOX4 ON EMS ARRIVAL "BUT SOMULENT" WITH INCREASED WORK OF BREATHING. PT ABLE TO SPEAK SENTENCES WITH INCREASED RESPIRATORY EFFORT. MONITORS CONNECTED. EKG COMPLETE. LABS/BLOOD CULTURES COMPLETE.
[2020-10-08] MEDS ORDERED: CEFTRIAXONE PMX 1GM/50ML 50 ML ONE ×2 (12:56→16:04)
--- NOTE | 2020-10-08 12:58 | NUR ---
Emergency contact Millie Wali [phone]
[2020-10-08] MEDS ORDERED: CEFTRIAXONE PMX 1GM/50ML 50 ML IVPB ONE (13:00)
[2020-10-08] MEDS ORDERED: SODIUM CHLORIDE 0.9% 1,000ML IVBOLUS ONE ×2 (13:00→14:00)
[2020-10-08 13:02] LABS: MD YES
[2020-10-08 13:05] LABS: <PLATELET ESTIMATE> ADEQUATE; <PLT MORPHOLOGY> NORMAL PLT MORPH; <RBC MORPHOLOGY> NORMAL; BAND#(MANUAL) 3.64 x10^3/uL; BANDS%(MANUAL) 20 % (0-7); LYMPH#(MANUAL) 0.18 x10^3/uL (1-3.4); LYMPHS% (MANUAL) 1 % (22-44); MONOS#(MANUAL) 1.82 x10^3/uL (0.3-2.7); MONOS% (MANUAL) 10 % (2-9); PMNS WITH VACUOLES 1+; SEG#(MANUAL) 12.56 x10^3/uL (1.8-6.8); SEGS% (MANUAL) 69 % (42-75)
--- NOTE | 2020-10-08 13:23 | NUR ---
RT AT BEDSIDE. OPTIFLOW SET UP. PER RT 45L AT 50%.
--- NOTE | 2020-10-08 13:24 | NUR ---
ORDERED MEDICATIONS INFUSING. CXR COMPLETE. SEPSIS FLOW SHOW IN PROGRESS AND SIGNED BY NONPROFIT FINANCIAL CONTROLLER
--- NOTE | 2020-10-08 13:43 | NUR ---
PT TOLERATING OPTIFLOW WELL, VSS IMPROVED, PT MORE ALERT.
[2020-10-08] MEDS ORDERED: SODIUM CHLORIDE 0.9% 1,000 ML IV SCH (14:00)
[2020-10-08 14:26] LABS: CREATINE KINASE, TOTAL 2764 U/L (39-308)
--- NOTE | 2020-10-08 14:26 | NUR ---
PT RESTING IN BED, VSS ON OPTIFLOW NC & FLUIDS INFUSING ORDERED.
[2020-10-08 14:41] LABS: SALICYLATE LEVEL < 1.7 mg/dL (2.8-20.0)
--- NOTE | 2020-10-08 14:53 | NUR ---
REPORT TO RENATO YO
[2020-10-08 15:06] LABS: AMPHETAMINE SCREEN, URINE Positive (Negative); BARBITURATE SCREEN, URINE Negative (Negative); BENZODIAZEPINE SCREEN, URINE Negative (Negative); CANNABINOID SCREEN, URINE Negative (Negative); COCAINE SCREEN, URINE Negative (Negative); METHADONE SCREEN, URINE Negative (Negative); OPIATE SCREEN, URINE Negative (Negative)
[2020-10-08 15:08] LABS: MICROSCOPIC INDICATED
--- NOTE | 2020-10-08 15:08 | NUR ---
BREAK RN: 3RD LITER BOLUS UP. INFUSING W/O DIFFICULTY
--- NOTE | 2020-10-08 15:21 | NUR ---
DR VILLALPANDO AT BEDSIDE, PT ASSESSMENT, VS REVIEWED.
[2020-10-08] MEDS ORDERED: VANCOMYCIN PER PHARMACY MC PRN ×2 (15:30→16:30)
[2020-10-08] MEDS ORDERED: VANCOMYCIN 2,500 MG in SODIUM CHLORIDE 0.9% 500 ML IV ONE (15:30)
--- NOTE | 2020-10-08 15:55 | NUR ---
REPORT FROM TATUM YO.
[2020-10-08] MEDS ORDERED: OXYcodone IR 5MG TABLET PO PRN (16:00)
[2020-10-08] MEDS ORDERED: ONDANSETRON 2MG/ML, 2ML IVPush PRN (16:00)
[2020-10-08] MEDS ORDERED: NOREPINEPHRINE 8 MG in SODIUM CHLORIDE 0.9% 242 ML IV PRN (16:00)
[2020-10-08] MEDS ORDERED: BISACODYL 10 MG SUPP PR PRN (16:00)
[2020-10-08] MEDS ORDERED: POLYETHYLENE GLYCOL 17 GM PACKET PO PRN (16:00)
[2020-10-08] MEDS: CEFTRIAXONE PMX 2GM/50ML 50 ML IVPB SCH (16:00)
--- NOTE | 2020-10-08 16:03 | NUR ---
[facility] MD RUSS AT BEDSIDE FOR EVALUATION
--- NOTE | 2020-10-08 16:31 | NUR ---
PT MOVED TO HOSPITAL BED
--- NOTE | 2020-10-08 16:40 | NUR ---
1 GM ROCEPHIN DUE PER DR RUSS DUE TO EARLIER DOSE TO TOTAL 2GM.
--- NOTE | 2020-10-08 17:20 | NUR ---
[facility] MD ALVARADO NOTIFIED OF VITAL SIGN CHANGES. CT HEAD ORDER RECIEVED
[2020-10-08 17:27] LABS: TROPONIN I 0.229 ng/mL (0.000-0.045)
--- NOTE | 2020-10-08 18:00 | NUR ---
INNA VILLALPANDO AT BEDSIDE TO PLACE CENTRAL LINE.
--- NOTE | 2020-10-08 18:19 | NUR ---
REPORT CALLED TO JOHANNA YO,
[2020-10-08] MEDS ORDERED: PHARMACOKINETIC MONITORING MC PRN (18:30)
[2020-10-08] MEDS ORDERED: PHARMACOKINETIC CONSULTATION MC ONE (18:30)
--- NOTE | 2020-10-08 18:40 | NUR ---
XRAY DONE PRIOR TO TRANSPORT, RESULTS NOT UP.
[2020-10-08] MEDS: HEPARIN 5,000 UNITS/ML, 1ML SQ SCH (20:07)
[2020-10-09 00:51] LABS: TROPONIN I 0.119 ng/mL (0.000-0.045)
[2020-10-09] MEDS: ALBUTEROL/IPRATROPIUM 2.5MG/0.5MG, 3 ML NPPB SCH ×4 (03:00→18:09)
[2020-10-09] MEDS: HEPARIN 5,000 UNITS/ML, 1ML SQ SCH ×3 (04:08→19:30)
[2020-10-09 04:25] LABS: BASOPHILS % (AUTO) 0 % (0-1); EOSINOPHILS % (AUTO) 0 % (1-7); LYMPHOCYTES % (AUTO) 3 % (22-44); MEAN CORPUSCULAR HEMOGLOBIN 32.3 pg (27.5-34.5); MEAN CORPUSCULAR HGB CONC 33.8 g/dL (33.2-36.2); MEAN PLATELET VOLUME 8.6 fL (7.4-10.4); MONOCYTES % (AUTO) 8 % (2-9); NEUTROPHILS % (AUTO) 88 % (42-75); PLATELET COUNT 150 x10^3/uL (130-400); RED BLOOD COUNT 4.44 x10^6/uL (4.38-5.82); RED CELL DISTRIBUTION WIDTH 14.7 % (9.4-14.8)
[2020-10-09 04:32] VITALS: BP 116/71
[2020-10-09 04:32] LABS: ALANINE AMINOTRANSFERASE 69 U/L (12-78); ALBUMIN 2.6 g/dL (3.4-5.0); ANION GAP 3 mmol/L (5-15); CALCIUM 7.5 mg/dL (8.5-10.1); CHLORIDE 98 mmol/L (98-107); CREATININE 2.59 mg/dL (0.7-1.3)
[2020-10-09 04:46] LABS: ALKALINE PHOSPHATASE 77 U/L (45-117); BILIRUBIN,TOTAL 0.7 mg/dL (0.2-1.0); CREATINE KINASE, TOTAL 6444 U/L (39-308)
[2020-10-09 05:16] LABS: MD SCAN
[2020-10-09] MEDS ORDERED: SODIUM CHLORIDE 0.9% 1,000 ML IV SCH (07:30)
[2020-10-09] MEDS: SENNA/DOCUSATE TABLET PO SCH (09:00)
[2020-10-09] MEDS: CEFTRIAXONE PMX 2GM/50ML 50 ML IVPB SCH (16:38)
[2020-10-09 17:32] VITALS: BP_SYST 105; BP_SYST 84; BP_DIAS 59; BP_DIAS 68
[2020-10-09 19:03] VITALS: BP 93/64
[2020-10-10 00:24] VITALS: BP 91/55
[2020-10-10] MEDS: ALBUTEROL-IPRATROPIUM MDI INH INH SCH ×3 (01:23→08:48)
[2020-10-10] MEDS ORDERED: VANCOMYCIN 2,000 MG in SODIUM CHLORIDE 0.9% 500 ML IV SCH (03:42)
[2020-10-10] MEDS: HEPARIN 5,000 UNITS/ML, 1ML SQ SCH (04:11)
[2020-10-10 04:42] VITALS: BP 93/56
[2020-10-10 05:17] LABS: MEAN CORPUSCULAR HEMOGLOBIN 32.7 pg (27.5-34.5); MEAN CORPUSCULAR HGB CONC 33.9 g/dL (33.2-36.2); MEAN PLATELET VOLUME 8.6 fL (7.4-10.4); PLATELET COUNT 112 x10^3/uL (130-400); RED BLOOD COUNT 4.06 x10^6/uL (4.38-5.82); RED CELL DISTRIBUTION WIDTH 14.8 % (9.4-14.8)
[2020-10-10 05:28] LABS: CHLORIDE 100 mmol/L (98-107)
[2020-10-10 05:51] LABS: ALANINE AMINOTRANSFERASE 64 U/L (12-78); ALBUMIN 2.3 g/dL (3.4-5.0); ALKALINE PHOSPHATASE 79 U/L (45-117); ANION GAP 7 mmol/L (5-15); BILIRUBIN,TOTAL 0.4 mg/dL (0.2-1.0); CALCIUM 7.9 mg/dL (8.5-10.1); CREATINE KINASE, TOTAL 2735 U/L (39-308); CREATININE 3.19 mg/dL (0.7-1.3); TOTAL PROTEIN 6.6 g/dL (6.4-8.2)
[2020-10-10 06:28] LABS: MD YES
[2020-10-10 06:29] LABS: <RBC MORPHOLOGY> NORMAL; BAND#(MANUAL) 2.91 x10^3/uL; BANDS%(MANUAL) 28 % (0-7); LYMPH#(MANUAL) 0.52 x10^3/uL (1-3.4); LYMPHS% (MANUAL) 5 % (22-44); MONOS#(MANUAL) 0.62 x10^3/uL (0.3-2.7); MONOS% (MANUAL) 6 % (2-9); PMNS WITH VACUOLES 2+; SEG#(MANUAL) 6.34 x10^3/uL (1.8-6.8); SEGS% (MANUAL) 61 % (42-75)
[2020-10-10 06:30] LABS: <PLATELET ESTIMATE> DECREASED; <PLT MORPHOLOGY> NORMAL PLT MORPH
[2020-10-10 06:43] LABS: TOXIC GRAN 1+
[2020-10-10] MEDS ORDERED: SODIUM CHLORIDE 0.9% 1,000 ML IV SCH (07:30)
[2020-10-10] MEDS: SENNA/DOCUSATE TABLET PO SCH (08:48)
[2020-10-10] MEDS ORDERED: CEFD300C37 PO (09:11)
== END 2020-10-10 09:37 | disposition left against medical advice (07) | DRG 720 ==
LOC: ED 13:43 → EDIP 16:10 → ICU 18:42 → 4WST 10-09 17:15
PROVIDERS: ADMIT Internal Medicine; ATTEND Family Medicine
PROC: 02HV33Z Insertion of Infusion Device into Superior Vena Cava, Percutaneous Approach (ICD-10-PCS; principal; 2020-10-08)
PROC: B548ZZA Ultrasonography of Superior Vena Cava, Guidance (ICD-10-PCS; 2020-10-08)
DX: A41.9 Sepsis, unspecified organism (principal); J44.9 Chronic obstructive pulmonary disease, unspecified; R65.21 Severe sepsis with septic shock; J96.21 Acute and chronic respiratory failure with hypoxia; L03.115 Cellulitis of right lower limb; L03.031 Cellulitis of right toe; E87.1 Hypo-osmolality and hyponatremia; Z20.822 Contact with and (suspected) exposure to COVID-19; N39.0 Urinary tract infection, site not specified; M62.82 Rhabdomyolysis; E87.2 Acidosis; F15.129 Other stimulant abuse with intoxication, unspecified; G93.41 Metabolic encephalopathy; N17.0 Acute kidney failure with tubular necrosis; I11.0 Hypertensive heart disease with heart failure; I50.33 Acute on chronic diastolic (congestive) heart failure; Z53.29 Procedure and treatment not carried out because of patient's decision for other reasons; B96.20 Unspecified Escherichia coli [E. coli] as the cause of diseases classified elsewhere; N40.0 Benign prostatic hyperplasia without lower urinary tract symptoms; M06.9 Rheumatoid arthritis, unspecified; G47.33 Obstructive sleep apnea (adult) (pediatric); E11.51 Type 2 diabetes mellitus with diabetic peripheral angiopathy without gangrene; B19.20 Unspecified viral hepatitis C without hepatic coma; E66.9 Obesity, unspecified; Z87.891 Personal history of nicotine dependence; Z88.6 Allergy status to analgesic agent; Z82.49 Family history of ischemic heart disease and other diseases of the circulatory system; Z99.81 Dependence on supplemental oxygen; Z68.39 Body mass index [BMI] 39.0-39.9, adult; Z79.899 Other long term (current) drug therapy
CPT/HCPCS: 36415; 36600; 70450; 71045; 80053; 80202; 80299; 80307; 80320; 80329; 81001; 82140; 82533; 82550; 82803; 83036; 83605; 83735; 83880; 84100; 84145; 84484; 85025; 87040; 87077; 87081; 87086; 87186; 93005; 93306; 94640; G0378; J0696; J1644; J3370; G0480; J7030; J7040; J7050; U0003